=== PATIENT | female | born 1970 | race Caucasian/White ===

== ENCOUNTER 2020-03-05 15:39 | Emergency (ER) | payer BC ==
[2020-03-05] MEDS ORDERED: CEFAZOLIN 2 GM/D5W RTU 2 GM/50 ML RTUPB IV ONE (16:01)
[2020-03-05] MEDS ORDERED: DIPH/PERTUSS(ACELL)/TETANUS VAC/PF 0.5 ML SYR (>=10YO) IM ONE (16:02)
[2020-03-05] MEDS ORDERED: FENTANYL CITRATE INJ/PF 100 MCG/2 ML AMPUL IV ONE (16:02)
--- NOTE | 2020-03-05 16:15 | ER Document Report ---
ED General - General Chief Complaint: Laceration Stated Complaint: LACERATION - RIGHT LEG Time Seen by Provider: 03/05/20 15:51 Primary Care Provider: LEIGHA WELLS DO [ACTIVE STAFF] - Follow up as needed Mode of Arrival: Medic Information source: Patient Notes: 50-year-old female patient presents the emergency department chief complaint of laceration. Patient has a large laceration to her right lower extremity. She states that she was going down a slide into a swimming pool when she hit something on the way down causing the laceration. Patient does report EtOH use today. Her tetanus is not up-to-date. EMS gave IV fentanyl which patient reports did help with her pain. - HPI Onset: Just prior to arrival Onset/Duration: Sudden Quality of pain: Stabbing, Throbbing Severity: Severe Pain Level: 5 - Related Data Allergies/Adverse Reactions: No Known Allergies Allergy (Unverified 03/05/20 16:30) Past Medical History - General Information source: Patient - Social History Smoking Status: Current Every Day Smoker Frequency of alcohol use: Occasional Drug Abuse: None Family History: Reviewed & Not Pertinent - Medical History Medical History: Negative Surgical Hx: Negative - Immunizations Immunizations up to date: No Hx Diphtheria, Pertussis, Tetanus Vaccination: No Review of Systems - Review of Systems Skin: Other - Large laceration -: Yes All other systems reviewed and negative Physical Exam - Vital signs Vitals: Temp 98.2 F 03/05/20 15:57 - Notes Notes: PHYSICAL EXAMINATION: GENERAL: Well-appearing, well-nourished and in no acute distress. HEAD: Atraumatic, normocephalic. EYES: Pupils equal round and reactive to light, extraocular movements intact, conjunctiva are normal. ENT: Nares patent, oropharynx clear without exudates. Moist mucous membranes. NECK: Normal range of motion, supple without lymphadenopathy LUNGS: Breath sounds clear to auscultation bilaterally and equal. No wheezes rales or rhonchi. HEART: Regular rate and rhythm without murmurs ABDOMEN: Soft, nontender, nondistended abdomen. No guarding, no rebound. No masses appreciated. Female : deferred Musculoskeletal: +DP pulse distal to injury, cap refill <3 seconds, normal motor and sensation distally. NEUROLOGICAL: Cranial nerves grossly intact. Normal speech. Normal sensory, motor exams PSYCH: Normal mood, normal affect. SKIN: Large "L' shaped laceration over the anterior lower extremity over the clark measuring approx 15 cm x 8 cm, gaping wide open, no active bleeding noted. Course - Re-evaluation Re-evalutation: 03/05/20 16:07 Large "L" shaped laceration over the anterior aspect of the right lower extremity over the clark measuring approx 15 cm x 8 cm with bone exposed. Dr. Sears to bedside to evaluate. Patient neurologically intact, cap refill less than 3 seconds distally, strong DP pulse. Normal motor and sensation distally. Will obtain xrays, update tetanus, give IV abx and consult ortho vs general surgery as patient may need wash out and deep closure. Dr. Sears recommends calling ortho first. 03/05/20 16:[address] Wells, he will come to the ED and see the patient. Patient reports her last meal was last night, she has had 8 beers today. 03/05/20 16:57 Patient has required multiple doses of IV pain medication. She is very anxious about the procedure, she will be given 0.[address] Wells came to the bedside and repaired the laceration, he will see her in the office for follow up. Patient declined the need for RX pain medications as she reports that she is a recovering addict. - Vital Signs Vital signs: Temp Pulse Resp BP Pulse Ox 97.8 F 65 12 127/82 H 100 03/05/20 18:52 03/05/20 18:52 03/05/20 18:52 03/05/20 18:52 03/05/20 18:52 Procedures - Laceration/Wound Repair R lower extremity Wound length (cm): 15 - 15x8 L shaped Wound's Depth, Shape: Into muscle, Irregular Anesthetic type: 1% Lidocaine w/epi Wound Repaired With: Sutures, Krystyna, Gerson drain Notes: 03/06/20 21:13 Laceration repair was performed by Dr. Wells. Discharge - Discharge Clinical Impression: Laceration of right leg excluding thigh Qualifiers: Encounter type: initial encounter Qualified Code(s): S81.811A - Laceration without foreign body, right lower leg, initial encounter Condition: Stable Disposition: HOME, SELF-CARE Additional Instructions: Laceration Care Your laceration has been sutured to keep the skin edges aligned during healing. The time of suture removal depends on the nature and location of your cut. Please follow the care instructions the doctor has outlined for you and return for further care, according to the schedule you've been given. Keep the wound and dressing clean. Unless you were told otherwise, you may shower daily, blotting the wound dry with a clean, unused towel. At other times, If the dressing gets wet or blood soaked, remove it and blot the wound dry, then reapply a new dressing. Unless you were instructed otherwise, angelica ssings should be changed at least daily. If any signs of infection occur (swelling, redness, increasing tenderness, red streaks, tender lumps in the armpit or groin above the laceration, or fever ), see the doctor immediately. Tetanus Immunization Given You have been given an immunization against tetanus. Please record this in your records. In general, a booster is needed only once every 10 years. The tetanus shot protects against tetanus or "lockjaw," which is a complication of certain wound infections (the tetanus shot cannot protect against the actual infection). The immunization site may become warm and red due to local reaction. If this occurs, apply warm compresses and take aspirin or ibuprofen to reduce inflammation and discomfort. Return for evaluation if the reaction becomes severe. Change the dressing 1-2 times per day. Keep the splint in place until cleared by ortho. Tylenol or Ibuprofen for pain. Take the drain out in 2 days. Follow up with Dr. Wells on Thursday, call his office tomorrow to establish your appointment. Prescriptions: Doxycycline Hyclate [Vibramycin 100 mg Tablet] 100 mg PO BID #20 tablet Referrals: LEIGHA WELLS DO [ACTIVE STAFF] - Follow up as needed
[2020-03-05] MEDS ORDERED: LIDOCAINE 1%/EPINEPHRINE INJ 20 ML VIAL INJ ONE ×2 (16:41→17:29)
--- NOTE | 2020-03-05 16:42 | RADIOLOGY REPORT (SQ) ---
EXAM DESCRIPTION: TIBIA FIBULA RIGHT IMAGES COMPLETED DATE/TIME: 03/05/2020 4:24 pm REASON FOR STUDY: large laceration to the bone COMPARISON: None. NUMBER OF VIEWS: Two views. TECHNIQUE: Two radiographic images acquired of the right tibia and fibula to include the knee and an kle in at least one projection. LIMITATIONS: None. FINDINGS: MINERALIZATION: Normal. BONES: Soft tissue defects on the tibial side of the calf. There is no associated fracture, perioste al reaction or radiopaque foreign body. SOFT TISSUES: As above. OTHER: No other finding. IMPRESSION: Soft tissue defects on the tibial side of the calf. There is no associated fracture, p eriosteal reaction or radiopaque foreign body. TECHNICAL DOCUMENTATION: JOB ID: [id number] 2010 [employer]- All Rights Reserved Reading location - IP/workstation name: [email or web address]
[2020-03-05] MEDS ORDERED: HYDROMORPHONE HCL INJ/PF 2 MG/ML AMPULE IV ONE ×3 (16:46→17:24)
[2020-03-05] MEDS ORDERED: LORAZEPAM 0.5 MG TABLET PO ONE (16:57)
[2020-03-05] MEDS ORDERED: LORAZEPAM INJ 2 MG/1 ML VIAL IV ONE (16:58)
[2020-03-05] MEDS ORDERED: CEFAZOLIN SODIUM 2 GM in DEXTROSE 5%-WATER 100 ML IV ONE (17:00)
[2020-03-05] MEDS ORDERED: ONDANSETRON HCL INJ/PF 4 MG/2 ML SDV IV ONE (17:24)
--- NOTE | 2020-03-05 18:45 | PDOC CONSULTATION ---
Consultation Consult Date: 03/05/20 Attending physician:: TAIWO BAXTER Provider Consulted: LEIGHA WELLS History of Present Illness Patient complains of: Right Leg Pain History of Present Illness: JO PHILLIP is a 50 year old female who was swimming in a friend's pool when she was going down the water slide and somehow cut her leg. She is unaware of the exact mechanism of injury or what cut her leg but had notable soft tissue injury. Patient notes numbness and tingling throughout her leg and foot. Pain worse with any attempted motion. Received multiple doses of IV pain medication in the emergency room which did provide improvement. Patient had been drinking approximately 8 drinks of alcohol during her injury otherwise had been n.p.o. since yesterday. Denies prior trauma. Pain /. Social History Smoking Status: Current Every Day Smoker Electronic Cigarette use?: No Family History Family History: Reviewed & Not Pertinent Parental Family History Reviewed: No Children Family History Reviewed: No Sibling(s) Family History Reviewed.: No Medication/Allergy Home Medications: Doxycycline Hyclate [Vibramycin 100 mg Tablet] 100 mg PO BID #20 tablet 03/05/20 Allergies/Adverse Reactions: No Known Allergies Allergy (Unverified 03/05/20 16:30) Review of Systems Constitutional: ABSENT: chills, fever(s), headache(s), weight gain, weight loss Eyes: ABSENT: visual disturbances Ears: ABSENT: hearing changes Cardiovascular: ABSENT: chest pain, dyspnea on exertion, edema, orthropnea, palpitations Respiratory: ABSENT: cough, hemoptysis Gastrointestinal: ABSENT: abdominal pain, constipation, diarrhea, hematemesis, hematochezia, nausea, vomiting Genitourinary: ABSENT: dysuria, hematuria Musculoskeletal: PRESENT: as per HPI Integumentary: PRESENT: as per HPI, wounds. ABSENT: rash Neurological: ABSENT: abnormal gait, abnormal speech, confusion, dizziness, focal weakness, syncope Psychiatric: ABSENT: anxiety, depression, homidical ideation, suicidal ideation Endocrine: ABSENT: cold intolerance, heat intolerance, menstrual abnormalities, polydipsia, polyuria Hematologic/Lymphatic: ABSENT: easy bleeding, easy bruising, lymphadenopathy Physical Exam Vital Signs: Temp Pulse Resp BP Pulse Ox 98.2 F 03/05/20 15:57 Intake & Output 03/04/20 03/05/20 03/06/20 06:59 06:59 06:59 Intake Total 100 Balance 100 Weight 61.235 kg General appearance: PRESENT: no acute distress, well-developed, well-nourished Head exam: PRESENT: atraumatic, normocephalic Eye exam: PRESENT: conjunctiva pink, EOMI, PERRLA. ABSENT: scleral icterus Ear exam: PRESENT: normal external ear exam Mouth exam: PRESENT: moist, tongue midline Neck exam: PRESENT: full ROM. ABSENT: carotid bruit, JVD, lymphadenopathy, thyromegaly Respiratory exam: PRESENT: unlabored Cardiovascular exam: PRESENT: RRR. ABSENT: diastolic murmur, rubs, systolic murmur Pulses: PRESENT: normal dorsalis pedis pul, +2 pedal pulses bilateral Vascular exam: PRESENT: normal capillary refill GI/Abdominal exam: PRESENT: normal bowel sounds, soft. ABSENT: distended, g uarding, mass, organolmegaly, rebound, tenderness Rectal exam: PRESENT: deferred Musculoskeletal exam: PRESENT: other - Right leg: L-shaped laceration which starts just distal to Gerdy's tubercle obliquely across the anterior tibia and across the medial tibia. Total laceration extends approximately 16 cm. There is mild necrosis along the edge at the 90 degrees turn distally. Patient lacks sensation lateral to the laceration site and along the dorsum of the foot and 1 cm medially. Deep soft tissue is noted without involvement of the bone or periosteum which remains intact. There is no involvement of the underlying fascia. Superficial and subcutaneous veins are noted. No gross contamination. Intact plantarflexion/dorsiflexion. Cap refill less than 2 seconds. Normal skin turgor. Dorsalis pedis pulse 2+. Neurological exam: PRESENT: alert, awake, oriented to person, oriented to place, oriented to time, oriented to situation, CN II-XII grossly intact. ABSENT: motor sensory deficit Psychiatric exam: PRESENT: appropriate affect, normal mood. ABSENT: homicidal ideation, suicidal ideation Skin exam: PRESENT: dry, intact, warm. ABSENT: cyanosis, rash Results Impressions: Tibia/Fibula X-Ray 03/05/20 16:02 IMPRESSION: Soft tissue defects on the tibial side of the calf. There is no associated fracture, periosteal reaction or radiopaque foreign body. Status: Image reviewed by me - I have reviewed patient's radiographs which demonstrate soft tissue defects no evidence of periosteal reaction or underlying fracture. Assessment & Plan - Diagnosis (1) Laceration of right leg excluding thigh Qualifiers: Encounter type: initial encounter Qualified Code(s): S81.811A - Laceration without foreign body, right lower leg, initial encounter Is this a current diagnosis for this admission?: Yes Plan: Patient sustained fairly significant sized laceration of the right leg distal to the knee joint no evidence of knee or ankle joint involvement. There is no break of the periosteum or fascia and thus although it is a large laceration there is no deep complicated involvement. Infection remains certainly a risk of patient's original injury today we discussed treatment options I have recom mended irrigation debridement with closure of the laceration in the emergency room. Patient will receive IV antibiotics. Will be placed in a posterior splint after closure and is to have the drain removed in 2 days either at our office or by herself. She is to see me upon follow-up on Thursday for wound check. If patient notices increased redness, swelling, pain or fever should contact their office to be evaluated or present to the emergency room. Risk and benefits of the procedure were explained to the patient risk including neurovascular risk, infection, dehiscence, postoperative pain patient verbalized understanding and has consented for surgical procedure. I further warned the patient about the negative effects of tobacco on wound healing and overall health. See additional note for procedure.
--- NOTE | 2020-03-05 18:49 | Operative Report ---
Operative Report DATE OF SURGERY: 03/05/20 PREOPERATIVE DIAGNOSIS: Laceration right leg POSTOPERATIVE DIAGNOSIS: Same OPERATION: Irrigation and debridement with closure 16cm laceration right leg including subcutaneous tissues no tendon involvement SURGEON: LEIGHA WELLS ANESTHESIA: Other - Local COMPLICATIONS: None ESTIMATED BLOOD LOSS: Minimal PROCEDURE: Procedure in detail: Right lower extremity was prepped with Betadine. 40 cc of 1% lidocaine with epinephrine was injected along the skin edges proximally and distally until adequately anesthetized. Wound was then copiously irrigated with 1 L of saline through puncture hole in the distal end. Leg was then prepped with Betadine once again and draped in a sterile fashion. Exploration of the wound was performed there was superficial disruption of small peripheral veins no evidence of full-thickness nerve involvement, periosteal involvement or fascial involvement requiring repair. The most distal aspect of the incision made a 90 degrees turn medially with some superficial necrosis but adipose remained deep to the dermis. Any nonviable skin and deep soft tissue was successfully excised. There was no evidence of gross contamination. Subcutaneous tissues were closed with 2-0 Vicryl and 4-0 Monocryl suture. Total laceration site measured 16cm as noted on physical examination consultation. The skin was then closed with todd. A Gerson drain was placed deep along the 90 degree angle. Wound was dressed with Xeroform and a bulky dressing. Patient was placed in a posterior splint. Sponge counts, instrument counts, needle counts were correct. Patient was then awoken from anesthesia. Transferred from the operating room table to the operating room stretcher. There was no intraoperative complications patient tolerated procedure well stable to PACU.
[2020-03-05 18:54] VITALS: BP 127/82
== END 2020-03-05 18:52 | disposition home or self-care (01) ==
LOC: ER 15:39
DX: S86.921A Laceration of unspecified muscle(s) and tendon(s) at lower leg level, right leg, initial encounter (principal); S81.811A Laceration without foreign body, right lower leg, initial encounter; W22.8XXA Striking against or struck by other objects, initial encounter; Y93.19 Activity, other involving water and watercraft; Y92.095 Swimming-pool of other non-institutional residence as the place of occurrence of the external cause; F17.200 Nicotine dependence, unspecified, uncomplicated; Z23 Encounter for immunization
CPT/HCPCS: 99284; 96372; 90471; 96375; 96365; 73590; 90715; 12035; J0690; J3010; J3490; J1170; J2060; J2405; J7060